=== PATIENT | male | born 1985 | race Caucasian/White ===

== ENCOUNTER 2024-03-19 05:53 | Emergency (ER) | payer MEDICARE, OTHER ==
[~2024-03-19] VITALS: Ht 177.8 cm; Wt 100.0 kg
[~2024-03-19 05:53] MED LIST: BENZ-247 PO; OLAN10TA74 PO; RISP3TAB35 PO
[2024-03-19 06:22] VITALS: BP 124/71; PULSE 108; RESP 16; TEMP 98.2; O2SAT 100
[2024-03-19 07:02] LABS: BASOPHILS % (AUTO) 0.5 % (0.0-2.0); HEMATOCRIT 40.4 % (41-53); HEMOGLOBIN 13.7 g/dL (13.5-17.5); LYMPHOCYTES # (AUTO) 1.3 K/uL (1.0-4.8); LYMPHOCYTES % (AUTO) 9.7 % (22.0-44.0); MEAN CORPUSCULAR HEMOGLOBIN 28.4 pg (26.0-34.0); MEAN CORPUSCULAR HGB CONC 33.8 G/dL (31.0-37.0); MEAN CORPUSCULAR VOLUME 84 fL (80-100); MONOCYTES # (AUTO) 1.2 K/uL (0.1-1.0); MONOCYTES % (AUTO) 8.8 % (2.0-9.0); NEUTROPHILS # (AUTO) 11.1 K/uL (1.8-7.7); PLATELET COUNT (AUTO) 226 K/uL (150-450); RED BLOOD CELL COUNT(AUTO) 4.82 MIL/uL (4.50-5.90); RED CELL DISTRIBUTION WIDTH 13.6 % (11.5-14.5); WHITE BLOOD COUNT (AUTO) 13.9 K/uL (4.5-11.0)
[2024-03-19 07:12] LABS: ANION GAP 9 mmol/L (8-16); CALCIUM, TOTAL 8.8 mg/dL (8.8-10.5); CARBON DIOXIDE 26 mmol/L (22-29); CHLORIDE 100 mmol/L (98-107); CREATININE 1.04 mg/dL (0.60-1.30); GLOMERULAR FILTR. RATE CALC > 60 mL/min (>60); GLUCOSE,RANDOM 108 mg/dL (70-110); POTASSIUM 3.4 mmol/L (3.5-5.1); SODIUM SERUM 135 mmol/L (136-145); UREA NITROGEN, BLOOD 27 mg/dL (7-18)
[2024-03-19 07:15] LABS: ALCOHOL, BLOOD (SERUM) < 3 mg/dL (0-10)
[2024-03-19] MEDS: LORazepam 1 MG TABLET PO ONE (07:45)
[2024-03-19] MEDS: POTASSIUM CHLORIDE 20 MEQ ER TABLET PO ONE (08:30)
== END 2024-03-19 10:43 | disposition home or self-care (01) ==
LOC: EMS 05:53
DX: T43.651A Poisoning by methamphetamines accidental (unintentional), initial encounter (principal); F15.10 Other stimulant abuse, uncomplicated; R06.02 Shortness of breath; F41.9 Anxiety disorder, unspecified; F25.9 Schizoaffective disorder, unspecified; Z79.899 Other long term (current) drug therapy; Y92.89 Other specified places as the place of occurrence of the external cause
CPT/HCPCS: 99283; 80048; 85025; 36415; G0480